=== PATIENT | female | born 1945 | race Caucasian/White ===

== ENCOUNTER → 2017-08-31 | Outpatient (CLI) | payer MEDICARE ==
[~2017-08-31] MED LIST: REGADENOSON 0.4 MG/5 ML DISP.SYRIN. IV ONE
--- NOTE | 2017-08-31 09:55 | PCVCIMAG ---
APPROVED REPORT Patient Location: Out-Patient Indications Stenosis Doppler Spectral Velocity Analysis PSV / EDVPSV / EDV ECA (R) 121 / 8 cm/sECA (L) 161 / 11 cm/s dICA (R) 102 / 21 cm/sdICA (L) 67 / 17 cm/s Antonia (R) 90 / 22 cm/smICA (L) 134 / 32 cm/s pICA (R) 57 / 8 cm/spICA (L) 231 / 50 cm/s Bulb (R) 52 / 6 cm/sBulb (L) 56 / 10 cm/s dCCA (R) 59 / 12 cm/sdCCA (L) 69 / 12 cm/s mCCA (R) 68 / 10 cm/smCCA (L) 63 / 11 cm/s Vert (R) 60 / 9 cm/sVert (L) 59 / 12 cm/s ICA/CCA 1.73 ICA/CCA 3.35 Findings The right carotid bulb has mild plaque. The right proximal internal carotid artery shows no significant stenosis. The right common carotid artery shows no significant stenosis. The left external carotid artery shows no significant stenosis. The left carotid bulb has moderately severe calcified plaque. The left proximal internal carotid artery shows 70-80% stenosis. The left common carotid artery shows no significant stenosis. The left external carotid artery shows >50% stenosis. Conclusion 1. Right internal carotid artey plaquing 2. Left internal carotid artery stenosis (70-80%) 3. Antegrade vertebral flow
--- NOTE | 2017-08-31 09:56 | PCVCIMAG ---
APPROVED REPORT Study performed: 08/31/2017 07:14:23 EXAM: Comprehensive 2D, Doppler, and color-flow Echocardiogram Patient Location: Echo lab Status: routine BSA: 2.06 HR: 65 bpmBP: 134/78 mmHg Rhythm: NSR Other Information Study Quality: Technically Difficult Technically limited study due to body habitus. Risk Factors: Cardiac Risk Factors: HTN Indications Pacemaker CABG, Heart Block 2D Dimensions LVEF(%): 53.68 (>50%) IVSd: 10.78 (7-11mm) LVDd: 50.18 mm PWd: 12.26 (7-11mm)Ascending Ao: 35.04 (22-36mm) LVDs: 36.22 (25-40mm) Left Atrium: 46.83 (27-40mm) Aortic Root: 32.71 mm LV Single Plane 4CH: 47.12 % LV Single Plane 2CH: 41.37 %Gabriel's LVEF: 44.24 % Biplane EF: 43.8 % Volumes Left Atrial Volume (Systole) Single Plane 4CH: 90.62 mLSingle Plane 2CH: 110.38 mL LA ESV Index: 50.00 mL/m2 Aortic Valve AoV Peak Luis.: 1.54 m/s AO Peak Gr.: 9.46 mmHgLVOT Max P.24 mmHg LVOT Max V: 1.03 m/s Mitral Valve MV Peak Gr.: 7.92 mmHg MV Mean Gr.: 4.05 mmHgE/A Ratio: 1.0 MV Decel. Time: 349.00 ms MV E Max Luis.: 1.29 m/s MV A Luis.: 1.32 m/s MV Max Luis.: 1.41 m/s MV Mean Luis.: 0.95 m/s MV VTI: 458.08 mm MV PHT: 101.68 ms MVA (PHT): 2.16 cm2 IVRT: 100.35 ms Pulmonary Valve PV Peak Luis.: 0.86 m/sPV Peak Gr.: 2.99 mmHg Pulmonary Vein P Vein S: 0.60 m/sP Vein A: 0.34 m/s P Vein D: 0.68 m/sP Vein A Dur.: 141.9 msec P Vein S/D Ratio: 0.88 Tricuspid Valve TR Peak Luis.: 3.02 m/s TR Peak Gr.: 36.41 mmHg Left Ventricle The left ventricle is normal size. There is normal LV segmental wall motion. Borderline concentric left ventricular hypertrophy. Left ventricular systolic function is normal. The left ventricular ejection fraction is within the normal range. LVEF is 50-55%. Grade II - pseudonormal filling dynamics. Right Ventricle The right ventricle is normal size. The right ventricular systolic function is normal. Atria Left atrium is moderate-severely dilated. The right atrium size is normal. Aortic Valve The Aortic valve is sclerotic, not stenotic. No aortic regurgitation is present. There is no aortic valvular stenosis. Mitral Valve Mitral annular calcification is moderate to severe. The mitral valve leaflets are calcified. Mild mitral regurgitation. Mild mitral stenosis. Calculated mitral valve area is 2.2 cm2 with a mean pressure gradient of 4.1 mmHg. Tricuspid Valve The tricuspid valve is normal in structure. Mild tricuspid regurgitation with PAP of 43 mmHg. Pulmonic Valve The pulmonary valve is normal in structure. There is no pulmonic valvular regurgitation. Great Vessels The aortic root is normal in size. IVC is normal in size and collapses with >50% inspiration Pericardium There is no pericardial effusion. <Conclusion> The left ventricle is normal size. Borderline concentric left ventricular hypertrophy. LVEF is 50-55%. Grade II - pseudonormal filling dynamics. The right ventricle is normal size. Left atrium is moderate-severely dilated. The Aortic valve is sclerotic, not stenotic. Mitral annular calcification is moderate to severe. The mitral valve leaflets are calcified. Mild mitral regurgitation. Mild tricuspid regurgitation with PAP of 43 mmHg. There is no pericardial effusion.
--- NOTE | 2017-08-31 10:30 | PCVCIMAG ---
EXAM: BILATERAL LOWER EXTREMITY ARTERIAL DUPLEX INDICATION: Peripheral Arterial Disease. Leg pain. FINDINGS: Right Leg: Satisfactory arterial waveforms in the common femoral and profunda femoral artery and throughout the superficial femoral artery and popliteal artery without significant stenosis. Previous popliteal artery stent maintaining good patency. The anterior tibial artery is patent. The peroneal artery is patent including previous stent proximally. The posterior tibial artery is occluded throughout. Left Leg: Satisfactory arterial waveforms in the common femoral and profunda femoral artery. No significant stenosis in the superficial femoral artery popliteal artery. Previous stent mid/upper superficial femoral artery remains patent. The peroneal artery is occluded. The posterior tibial artery is patent. 80% restenosis proximal anterior tibial artery within prior stent. IMPRESSION: Previous right popliteal and right peroneal artery stents maintaining good patency. Unchanged occlusion right posterior tibial artery. Previous stent mid/upper left superficial femoral artery is patent. 80% restenosis proximal left anterior tibial artery within prior stent. Occlusion of the left peroneal artery. LOC:[id number]
--- NOTE | 2017-09-01 13:06 | PCVCIMAG ---
APPROVED REPORT Exam: Nuclear Stress Test BMI: 0 NM EXAM: Myocardial Perfusion REST/STRESS Imaging Protocol: Rest Tc-99m/Stress Tc-99m 1 day Resting Data Rest SPECT myocardial perfusion imaging was performed in supine position 45 minutes following the intravenous injection of 16 mCi of Tc-99m Sestamibi. Time of rest injection: 0950 Date: 08/31/2017 Administration Route: IV Administration Site: Left AC Pharmacologic Stress Pharmacologic stress test was performed by injecting Regadenoson 0.4 mg IV push followed by the intravenous injection of 42.2 mCi of Tc-99m Sestamibi. Time of stress injection: 1150 Date: 08/31/2017 Administration Route: IV Administration Site: Left AC Gated Stress SPECT was performed 45 minutes after stress injection. The images were gated to evaluate regional wall motion and calculate left ventricular ejection fraction. Study Quality Study: Good Study Data Post stress, the left ventricular ejection was 70%.. SSS: 23 SRS: 9 SDS: 14 TID = 0.93. Perfusion Large sized area of moderate reversible ischemia involving the inferior/inferolateral left ventricle consistent with a circumflex distribution. 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 Wall Motion Normal left ventricular size and function with no regional wall motion abnormalities. Nuclear Conclusion Large sized area of moderate reversible ischemia involving the inferior/inferolateral left ventricle consistent with a circumflex distribution. 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 Post stress, the left ventricular ejection was 70%.. No change since prior study dated May 2016. Interpreted by: Ernie Randhawa MD Electronically Approved: 08/31/2017 14:16:08 Stress Test Details Stress Test: Pharmacologic stress testing performed using 0.4 mg of regadenoson per 5 mL given IV over 10 seconds. Reason for pharmacologic stress test: physical limitation, uses a walker. HR Resting HR: 71 bpmMax Heart Rate (APMHR): 147 bpm Max HR Achieved: 81 bpmTarget HR (85% APMHR): 124 bpm % of APMHR: 55 Recovery HR: 79 bpm BP Resting BP: 171/74 mmHg Max BP: 145/65 mmHg ECG Resting ECG: Sinus Rhythm, RBBB Stress ECG: Sinus Rhythm, RBBB Recovery ECG: Sinus Rhythm, RBBB Clinical Reason for Termination: Completed protocol Stress Symptoms: Light-headed Exercise duration: 0 min 55 sec Exercise capacity: 1.0 METs Symptoms resolved during recovery. Stress ECG Conclusion ECG: Non-ischemic Clinical: Non-ischemic <Conclusion> ECG: Non-ischemic Clinical: Non-ischemic
== END | disposition home or self-care (01) ==
LOC: PCVCIMAG 07:07
PROVIDERS: ATTEND Internal Medicine Cardiovascular Disease
DX: I25.810 Atherosclerosis of coronary artery bypass graft(s) without angina pectoris (principal); I10 Essential (primary) hypertension; E78.5 Hyperlipidemia, unspecified; I73.9 Peripheral vascular disease, unspecified; I77.9 Disorder of arteries and arterioles, unspecified; I49.5 Sick sinus syndrome; R94.31 Abnormal electrocardiogram [ECG] [EKG]; I65.23 Occlusion and stenosis of bilateral carotid arteries; I45.9 Conduction disorder, unspecified; I08.1 Rheumatic disorders of both mitral and tricuspid valves; M79.605 Pain in left leg; E11.9 Type 2 diabetes mellitus without complications; G47.30 Sleep apnea, unspecified; M79.604 Pain in right leg; Z95.0 Presence of cardiac pacemaker; Z87.891 Personal history of nicotine dependence; Z79.899 Other long term (current) drug therapy; Z79.82 Long term (current) use of aspirin; Z95.1 Presence of aortocoronary bypass graft
CPT/HCPCS: 78452; 80061; 93005; 93017; 93306; 93880; 93925; A9500; G0463; J2785

== ENCOUNTER → 2017-09-08 | Outpatient (CLI) | payer MEDICARE ==
[~2017-09-08] MED LIST changes: +EPINEPHrine 1 MG/ML VIAL ONE; +EPTIFIBATIDE BOLUS 2,000 MCG/ML 10ML VIAL. IV ONE; +HEPARIN SODIUM 5,000 UNIT/ML VIAL for PCVC. ONE; +IODIXANOL 270 MG/ML 100 ML VIAL. ONE; +IOHEXOL 300 MG/ML 100ML VIAL. ONE; +IOHEXOL 350 MG/ML 100 ML VIAL. ONE; +IOHEXOL 350 MG/ML 50 ML VIAL. ONE; +IV NORMAL SALINE 1000ML BAG 1,000 ML ONE; +LIDOCAINE 1% Multi-Dose 20 ML VIAL. ONE; +MIDAZOLAM HCL/PF 2 MG/2 ML VIAL. ONE; -REGADENOSON 0.4 MG/5 ML DISP.SYRIN. IV ONE; +fentaNYL PF VIAL 100 MCG/2 ML VIAL ONE; +hydrALAZINE 20 MG/ML VIAL. ONE
--- NOTE | 2017-09-08 16:06 | PCVCINTER ---
APPROVED REPORT Patient Details Patient Status: Room #: 2 The patient is a 71 year-old Female Event Personnel Edis Verdugo MD, Matheus Arias DO, Iban Martínez RN, Toan Murray RN, Kelly Washington RT(R)(), Rubina Lopez RT(R) Risk Factors Arterial HypertensionDysplipidemia (Type: 1), Peripheral Vascular Disease, Hypercholesterolemia, Diabetes (Control: Insulin)Last Creatanine 0.8Tobacco History (Former) Previous Procedures/Diagnoses Previous CABGPrevious PCI Procedure Narrative The patient was brought electively to the Cardiac Catheterization Laboratory and was prepped and draped in a sterile manner. The right femoral was infiltrated with 1% Lidocaine subcutaneous anesthesia. The right femoral accessed via ultrasound guidance. A 6F sheath was inserted into the right femoral artery. Coronary angiography was performed using coronary diagnostic catheters. The right coronary system was accessed and visualized with a JR4 catheter. The left coronary system was accessed and visualized with a JL4 catheter. The left ventricle was accessed and visualized with a Straight pigtail catheter. Left ventriculogram was performed in FISHER projection. Hemostasis was obtained with manual pressure following sheath removal without any complications. The patient tolerated the procedure well and there were no complications associated with the procedure. There was no hematoma. Hemodynamics The right atrial mean pressure is 15 mmHg. The right ventricular pressure is 125 mmHg. The pulmonary artery pressure is 125 mmHg with a mean of 15 mmHg. The mean pulmonary capillary wedge pressure is 15 mmHg. The aortic pressure is 127/52 mmHg with a mean of 81 mmHg. The left ventricular pressure is 125/0 mmHg with a mean of 15 mmHg. Conclusion #1 normal left ventricular size and systolic function. #2 left main distal narrowing giving rise to LAD and circumflex both of which occludes #3 LAD occludes after the first proximal septal chemist intern #4 BLUM to LAD is intact mild irregularities LAD extends to the apex with mild to moderate disease #5 [place] circumflex occluded proximally #6 [place] right coronary artery occluded #7 radial graft to PDA is intact relatively small PDA ROSMERY system briskly filled diffusely diseased #8 SVG to OM branches patent with mild disease OM system is diffusely diseased but briskly filled Recommendations plan continue aggressive risk factor modification no indication for coronary intervention. Follow-up will be scheduled
--- NOTE | 2017-09-08 16:16 | PCVCINTER ---
EXAM: 1. CERVICOEPHALIC ARCH AORTOGRAM 2. BILATERAL CAROTID ANGIOGRAPHY 3. LEFT VERTEBROBASILAR ANGIOGRAPHY 4. BILATERAL RENAL ANGIOGRAPHY 5. AORTOGRAM AND BILATERAL LOWER EXTREMITY RUNOFF ANGIOGRAM 6. LEFT POPLITEAL ARTERY ATHERECTOMY AND DRUG COATED BALLOON ANGIOPLASTY. 7. SECONDARY THROMBECTOMY LEFT POPLITEAL ARTERY. 8. LEFT ANTERIOR TIBIAL ARTERY ATHERECTOMY. INDICATION: Carotid occlusive disease. Left subclavian steal. Hypertension. Renal atherosclerosis. Peripheral arterial disease. Nonhealing ulcer lower legs. PROCEDURE: Procedure and risks of the procedures listed above were discussed with the patient and consent obtained. Risks including but not limited to bleeding, infection, stroke, vascular injury, neurologic injury, embolization, allergic reactions, and contrast-induced nephropathy requiring dialysis were discussed as appropriate and consent obtained. Patient was placed on the angiography table. IV conscious sedation was utilized with appropriate monitoring from 8:00 AM through 10:15 AM. The right groin was prepped and draped in the normal sterile fashion. Ultrasound was used to interrogate the right groin and demonstrate the right common femoral artery. An ultrasound image was saved. Under ultrasound guidance a 21 gauge needle was used to gain access into the right common femoral artery and a 6F vascular sheath was placed. Catheter was placed into the ascending aorta and cervicocephalic aortic arch angiogram performed. Catheter was placed into the suprarenal abdominal aorta and abdominal aortic angiogram performed. Catheter was placed at the aortic bifurcation and both oblique views of the pelvis were obtained. Catheter was placed into the right common carotid artery and right common carotid angiogram performed. Catheter was placed into the left common carotid artery and left common carotid angiogram performed. Catheter was placed into the left subclavian artery and left vertebro-basilar angiogram performed. Catheter was positioned into the left external iliac artery and left leg runoff angiography was performed. Catheter was exchanged for a visceral catheter was placed into the right renal arteries and right renal angiograms obtained. Catheter was placed into the the left renal arteries and left renal angiograms were obtained. Catheter was advanced to the level of the right external iliac artery and right leg runoff angiography was obtained. Patient was given 4500 units of heparin. A 6 German crossover sheath was placed via the right groin to the level of the left common femoral artery. Atherectomy of the left popliteal artery was performed with 0.9 mm Spectranetics laser atherectomy catheter in the standard fashion. Atherectomy of the left anterior tibial was performed with 0.9 mm Spectranetics laser atherectomy catheter in the standard fashion. Following atherectomy small areas of thrombus were observed and because of this secondary thrombectomy throughout the left popliteal artery was carried out with mechanical suction thrombectomy catheter in the standard fashion. Minimal debris was removed. Following this angioplasty of the left anterior tibial artery was carried out with a 2.5 x 40 Cordis sleek DRIVER TRAINEE catheter. Following this drug coated balloon angioplasty of the left popliteal artery was carried out with a 4 x [address] Shangbytronic Admiral DRIVER TRAINEE catheter[address] Montes joined the procedure and he then performed coronary angiography. Please see his separate dictation for full details. Catheters and wires were removed and hemostasis obtained using the FISH device. No immediate complications. FINDINGS: Cervicocephalic arch aortogram: The origin of the great vessels show good patency. The thoracic aortic arch is unremarkable. Cranial directed flow in both vertebral arteries. Right common carotid angiogram: This injection fills the right anterior and middle cerebral distributions which are unremarkable. The petrous and cavernous carotids are patent. Postsurgical changes of endarterectomy are noted with the common carotid and internal carotid artery showing good patency. The external carotid artery is patent. Left common carotid angiogram: This injection fills the left anterior and middle cerebral distributions which are unremarkable. The cavernous and petrous carotids show adequate patency. Moderate plaque proximal internal carotid artery results in maximum 50% stenosis. Moderate stenosis at the origin of the external carotid artery. Common carotid artery is patent. Left vertebrobasilar angiogram: The left vertebral artery is patent as is the basilar artery and both posterior cerebral arteries. Aortogram: There is one right and one left renal artery. Moderate calcific plaque infrarenal abdominal aorta without significant stenosis. Pelvis: Right common iliac artery is patent. Moderate plaque left common iliac artery causing mild stenosis. The right and left external iliac arteries are patent. The right and left common femoral and profunda femoral arteries are patent. Right renal artery: Moderate plaque proximal vessel causes 40% stenosis which is not flow-limiting. Left renal artery: Moderate plaque proximal vessel does not cause significant stenosis. Right leg: Scattered plaque superficial femoral artery without significant stenosis. Popliteal artery shows adequate patency. Occlusion throughout the anterior tibial and posterior tibial arteries. The peroneal artery show satisfactory patency throughout to refill the plantar arteries and a diseased dorsalis pedis. Left leg: Stent in the upper superficial femoral artery showing good patency. Stent in the distal SFA also showing adequate patency. 80% restenosis in the upper popliteal artery within prior stent. 50% stenosis mid and distal popliteal artery within the [place] vessel. 90% stenosis mid to upper anterior tibial artery within prior stent. The peroneal artery is occluded. Mild scattered stenoses throughout the posterior tibial artery. Left popliteal artery: Following procedure as above vessel shows satisfactory patency. Left anterior tibial artery: Procedure as above vessel shows adequate patency. IMPRESSION: No significant right carotid artery stenosis. 50% maximum stenosis proximal left internal carotid artery. Areas of significant restenosis in the upper left popliteal artery and left anterior tibial artery within prior stent was treated as above with satisfactory patency restored. Unchanged occlusion right anterior and posterior tibial arteries with satisfactory right peroneal single vessel runoff. LOC:[id number]
== END | disposition home or self-care (01) ==
LOC: PCVCINTER 07:02
PROVIDERS: ATTEND Nuclear Medicine Nuclear Cardiology
DX: I70.213 Atherosclerosis of native arteries of extremities with intermittent claudication, bilateral legs (principal); I65.29 Occlusion and stenosis of unspecified carotid artery; I10 Essential (primary) hypertension; I70.1 Atherosclerosis of renal artery
CPT/HCPCS: 36223; 36225; 36252; 37186; 37225; 37229; 75716; 76937; 93459; 99152; 99153; C1725; C1751; C1757; C1760; C1769; C1885; C1894; C2623; J0171; J0360; J1327; J1644; J2250; J3010; J7030; Q9967

== ENCOUNTER → 2018-01-11 | Outpatient (CLI) | payer MEDICARE | END | disposition home or self-care (01) | LOC: PCVCIMAG 13:46 | DX: I65.23 Occlusion and stenosis of bilateral carotid arteries (principal); I73.9 Peripheral vascular disease, unspecified; I77.9 Disorder of arteries and arterioles, unspecified; I25.10 Atherosclerotic heart disease of native coronary artery without angina pectoris; I10 Essential (primary) hypertension; E11.8 Type 2 diabetes mellitus with unspecified complications; E78.00 Pure hypercholesterolemia, unspecified; Z87.891 Personal history of nicotine dependence; Z79.899 Other long term (current) drug therapy; Z88.0 Allergy status to penicillin | CPT/HCPCS: 93880; 93926; G0463 ==

== ENCOUNTER → 2018-07-05 | Outpatient (CLI) | payer MEDICARE | END | disposition home or self-care (01) | LOC: PCVCCLINIC 14:45 | PROVIDERS: ATTEND Internal Medicine Cardiovascular Disease | DX: I25.10 Atherosclerotic heart disease of native coronary artery without angina pectoris (principal); I73.9 Peripheral vascular disease, unspecified; I77.9 Disorder of arteries and arterioles, unspecified; R94.31 Abnormal electrocardiogram [ECG] [EKG]; E11.00 Type 2 diabetes mellitus with hyperosmolarity without nonketotic hyperglycemic-hyperosmolar coma (NKHHC); E78.00 Pure hypercholesterolemia, unspecified; I10 Essential (primary) hypertension; Z95.1 Presence of aortocoronary bypass graft; Z98.890 Other specified postprocedural states; Z95.0 Presence of cardiac pacemaker; Z88.8 Allergy status to other drugs, medicaments and biological substances; Z87.891 Personal history of nicotine dependence; Z79.899 Other long term (current) drug therapy; Z79.4 Long term (current) use of insulin; Z79.82 Long term (current) use of aspirin | CPT/HCPCS: 80061; 93005; G0463 ==

== ENCOUNTER → 2018-07-19 | Outpatient (CLI) | payer MEDICARE ==
--- NOTE | 2018-07-19 14:40 | PCVCIMAG ---
EXAM: BILATERAL CAROTID DUPLEX INDICATION: Carotid Occlusive Disease. Previous right carotid endarterectomy. FINDINGS: Doppler Measurements (centimeters per second): RIGHT: Peak CCA-66, Peak ECA-126, Diastolic ICA-17, Peak ICA-72, ICA/CCA Ratio-1.1. LEFT: Peak CCA-66, Peak ECA-229, Diastolic ICA-43, Peak ICA-221, ICA/CCA Ratio-3.4. RIGHT CAROTID: The carotid bulb has mild plaque. The proximal internal carotid artery shows <40% stenosis. The common carotid artery shows no significant stenosis. The external carotid artery shows no significant stenosis. LEFT CAROTID: The carotid bulb has moderate plaque. The proximal internal carotid artery shows 60% stenosis. The common carotid artery shows no significant stenosis. The external carotid artery shows 60% stenosis. Antegrade flow in both vertebral arteries. IMPRESSION: <40% stenosis of the right internal carotid artery with mild plaque. 60% stenosis of the left internal carotid artery with moderate plaque. These findings are similar to previous duplex which corresponded to a 50% stenosis on prior angiogram. LOC:[id number]
--- NOTE | 2018-07-19 14:56 | PCVCIMAG ---
EXAM: BILATERAL LOWER EXTREMITY ARTERIAL DUPLEX INDICATION: Peripheral Arterial Disease. Leg pain. FINDINGS: Right Leg: Common femoral and profunda femoral arteries are patent. Superficial femoral artery and popliteal artery maintaining adequate patency. Previous stent mid popliteal artery remains patent. The anterior tibial and posterior tibial arteries are occluded and this is unchanged. Peroneal artery is patent including previous proximal stent. Left Leg: Common femoral and profunda femoral arteries are patent. Superficial femoral artery and popliteal artery are patent including previous stents. The peroneal artery is occluded. Previous stent proximal/mid anterior tibial artery remains patent. The anterior tibial and posterior tibial arteries show satisfactory patency throughout. IMPRESSION: Previous right popliteal and proximal peroneal artery stents remain patent. Unchanged occlusion of the right anterior and posterior tibial arteries. Previous left superficial femoral artery and popliteal artery stents remain patent. Previous left anterior tibial artery stent remains patent. Unchanged occlusion left peroneal artery. LOC:[place] [id number]
== END | disposition home or self-care (01) ==
LOC: PCVCIMAG 13:00
PROVIDERS: ATTEND Nuclear Medicine Nuclear Cardiology
DX: I65.23 Occlusion and stenosis of bilateral carotid arteries (principal); I73.9 Peripheral vascular disease, unspecified; I77.9 Disorder of arteries and arterioles, unspecified; I25.10 Atherosclerotic heart disease of native coronary artery without angina pectoris; E11.00 Type 2 diabetes mellitus with hyperosmolarity without nonketotic hyperglycemic-hyperosmolar coma (NKHHC); E78.00 Pure hypercholesterolemia, unspecified; Z95.0 Presence of cardiac pacemaker; Z79.4 Long term (current) use of insulin; Z87.891 Personal history of nicotine dependence; Z79.82 Long term (current) use of aspirin
CPT/HCPCS: 93880; 93925; G0463

== ENCOUNTER → 2019-03-29 | Outpatient (CLI) | payer MEDICARE, MEDICAID ==
--- NOTE | 2019-03-29 13:20 | PCVCIMAG ---
APPROVED REPORT Laterality: Bilateral Indications Stenosis Doppler Spectral Velocity Analysis PSV / EDVPSV / EDV ECA (R) 107 / 9 cm/sECA (L) 153 / 9 cm/s dICA (R) 63 / 14 cm/sdICA (L) 92 / 18 cm/s Antonia (R) 58 / 12 cm/smICA (L) 164 / 22 cm/s pICA (R) 37 / 6 cm/spICA (L) 171 / 39 cm/s Bulb (R) 40 / 4 cm/sBulb (L) 86 / 15 cm/s dCCA (R) 66 / 10 cm/sdCCA (L) 64 / 9 cm/s mCCA (R) 73 / 9 cm/smCCA (L) 63 / 12 cm/s Vert (R) 47 / 6 cm/sVert (L) 42 / 10 cm/s ICA/CCA 0.95ICA/CCA 2.67 Findings The right carotid bulb has mild calcified plaque. The right proximal internal carotid artery shows no significant stenosis. The right common carotid artery shows no significant stenosis. The right external carotid artery shows no significant stenosis. The left carotid bulb has moderately severe calcified plaque. The left proximal internal carotid artery shows 60-70% stenosis. The left common carotid artery shows no significant stenosis. The left external carotid artery shows no significant stenosis. Conclusion 1. Right internal carotid artery calcific plaquing without significant stenosis. 2. Left internal carotid artery stenosis (60-70%). 3. Antegrade vertebral flow. Similar to a study dated July 2018.
--- NOTE | 2019-03-30 17:56 | PCVCIMAG ---
EXAM: BILATERAL LOWER EXTREMITY ARTERIAL DUPLEX INDICATION: Peripheral Arterial Disease. Leg pain. FINDINGS: Right Leg: Common femoral and profunda femoral arteries are patent. Superficial femoral artery and popliteal artery maintaining adequate patency. Previous stent mid popliteal artery remains patent. The anterior tibial and posterior tibial arteries are occluded and this is unchanged. Peroneal artery is patent including previous proximal stent. Left Leg: Common femoral and profunda femoral arteries are patent. Superficial femoral artery and popliteal artery are patent including previous stents. The peroneal artery is occluded. Previous stent proximal/mid anterior tibial artery remains patent. The anterior tibial and posterior tibial arteries show satisfactory patency throughout. IMPRESSION: Previous right popliteal and proximal peroneal artery stents remain patent. Unchanged occlusion of the right anterior and posterior tibial arteries. Previous left superficial femoral artery and popliteal artery stents remain patent. Note is made portions of the popliteal artery stent are not optimally seen. Previous left anterior tibial artery stent remains patent. Unchanged occlusion left peroneal artery. LOC:[place] [id number]
== END | disposition home or self-care (01) ==
LOC: PCVCIMAG 11:51
PROVIDERS: ATTEND Nuclear Medicine Nuclear Cardiology
DX: I65.23 Occlusion and stenosis of bilateral carotid arteries (principal); I73.9 Peripheral vascular disease, unspecified; I25.10 Atherosclerotic heart disease of native coronary artery without angina pectoris; E78.00 Pure hypercholesterolemia, unspecified; I10 Essential (primary) hypertension; E11.00 Type 2 diabetes mellitus with hyperosmolarity without nonketotic hyperglycemic-hyperosmolar coma (NKHHC); Z95.1 Presence of aortocoronary bypass graft; Z79.4 Long term (current) use of insulin; Z87.891 Personal history of nicotine dependence
CPT/HCPCS: 36415; 80061; 93005; 93880; 93925; G0463

== ENCOUNTER → 2019-08-31 | Outpatient (CLI) | payer MEDICARE, MEDICAID ==
[~2019-08-31] MED LIST changes: -EPINEPHrine 1 MG/ML VIAL ONE; -EPTIFIBATIDE BOLUS 2,000 MCG/ML 10ML VIAL. IV ONE; -HEPARIN SODIUM 5,000 UNIT/ML VIAL for PCVC. ONE; -IODIXANOL 270 MG/ML 100 ML VIAL. ONE; -IOHEXOL 300 MG/ML 100ML VIAL. ONE; -IOHEXOL 350 MG/ML 100 ML VIAL. ONE; -IOHEXOL 350 MG/ML 50 ML VIAL. ONE; -IV NORMAL SALINE 1000ML BAG 1,000 ML ONE; -LIDOCAINE 1% Multi-Dose 20 ML VIAL. ONE; -MIDAZOLAM HCL/PF 2 MG/2 ML VIAL. ONE; +REGADENOSON 0.4 MG/5 ML DISP.SYRIN. IV ONE; -fentaNYL PF VIAL 100 MCG/2 ML VIAL ONE; -hydrALAZINE 20 MG/ML VIAL. ONE
--- NOTE | 2019-08-31 13:49 | PCVCIMAG ---
APPROVED REPORT Imaging Protocol: Rest Tc-99m/Stress Tc-99m 1 day Study performed: 08/31/2019 10:54:31 Indication: Chest pain, CAD Patient Location: Out-Patient Stress Nurse: Vanessa Fairbanks RN, Hina Casas RN AR Tech:Rosita Adria [facility] Ht: 5 ft 4 in Wt: 258 lbs BSA: 2.18 m2 HR: 73 bpm BP: 190/83 mmHg BMI: 44.2 Rhythm: Sinus Rhythm, RBBB Medical History Medical History: Hyperlipidemia, HTN, CVD, Diabetic Insulin, Former Smoker, Pacemaker Medications: Aspirin, Nitroglycerin, Plavix, Lasix, Losartan, Bystolic, Crestor Allergies: Many - none relevant to this exam. Cardiac Risk Factors: Age Previous Cardiac Procedures: 2004 Pretest Chest Pain Characteristics: CABG Exercise History: Indeterminate Meds Held (24 hrs): bystolic Resting Data Rest SPECT myocardial perfusion imaging was performed in supine position 45 minutes following the intravenous injection of 13.1 mCi of Tc-99m Sestamibi. Time of rest injection: 1000 Date: 08/31/2019 Administration Route: IV Administration Site: Right Hand Pharmacologic Stress Pharmacologic stress test was performed by injecting Regadenoson 0.4 mg IV push over 10-15 seconds immediately followed by the intravenous injection of 42.1 mCi of Tc-99m Sestamibi. Time of stress injection: 1140 Date: 08/31/2019 Administration Route: IV Administration Site: Right Hand Gated Stress SPECT was performed 45 minutes after stress injection. The images were gated to evaluate regional wall motion and calculate left ventricular ejection fraction. Stress Test Details Stress Test: Pharmacologic stress testing performed using 0.4 mg of regadenoson per 5 mL given IV over 10 seconds. Reason for pharmacologic stress test: physical limitation, Dorothy ambulates wtih a walker. HRMax Heart Rate (APMHR): 145 bpm Resting HR: 73 bpmTarget HR (85% APMHR): 123 bpm Max HR Achieved: 75 bpm % of APMHR: 51 Recovery HR: 77 bpm BP Resting BP: 190/83 mmHg Max BP: 192/86 mmHg Recovery BP: 178/60 mmHg ECG Resting ECG: Sinus Rhythm, RBBB Stress ECG: Sinus Rhythm, RBBB Arrhythmia: PVC's Recovery ECG: Sinus Rhythm, RBBB Clinical Reason for Termination: Completed protocol Stress Symptoms: Dyspnea Symptoms resolved with caffeine. Stress ECG Conclusion 1. adequate response to iv lexiscan 2. inadequate heart rate for ecg diagnosis Study Data Post stress, the left ventricular ejection was 68%.. SSS: 9 SRS: 8 SDS: 3 TID = 1.00. Perfusion There is a medium area of moderately reduced uptake in the apical segment of the anterior wall which is seen on the stress images as well as the resting images. This area thickens and moves normally and is most consistent with attenuation artifact. Wall Motion Normal left ventricular wall motion. Nuclear Conclusion ECG Findings: non-diagnostic Clinical Findings: negative for ischemia Nuclear Findings: negative for ischemia Exercise Capacity: not assessed Left Ventricular Function: normal 1. low risk study 2. post stress lvef 68% with mild basilar hypokinesis Interpreted by: Ayesha Magallanes MD Electronically Approved: 08/31/2019 13:48:25 <Conclusion> 1. adequate response to iv lexiscan 2. inadequate heart rate for ecg diagnosis
== END | disposition home or self-care (01) ==
LOC: PCVCIMAG 09:34
PROVIDERS: ATTEND Internal Medicine Cardiovascular Disease
DX: I25.10 Atherosclerotic heart disease of native coronary artery without angina pectoris (principal); E11.9 Type 2 diabetes mellitus without complications; E78.5 Hyperlipidemia, unspecified; E78.00 Pure hypercholesterolemia, unspecified; E03.9 Hypothyroidism, unspecified; I10 Essential (primary) hypertension; G47.33 Obstructive sleep apnea (adult) (pediatric); Z90.09 Acquired absence of other part of head and neck; Z90.49 Acquired absence of other specified parts of digestive tract; Z82.49 Family history of ischemic heart disease and other diseases of the circulatory system; Z88.1 Allergy status to other antibiotic agents; Z95.0 Presence of cardiac pacemaker; Z87.891 Personal history of nicotine dependence; Z88.0 Allergy status to penicillin; Z88.8 Allergy status to other drugs, medicaments and biological substances; Z79.4 Long term (current) use of insulin; Z95.1 Presence of aortocoronary bypass graft; Z90.710 Acquired absence of both cervix and uterus; Z79.82 Long term (current) use of aspirin
CPT/HCPCS: 78452; 93005; 93017; A9500; G0463; J2785